=== PATIENT | male | born 1975 | race Caucasian/White ===

== ENCOUNTER 2019-12-15 05:44 | Emergency (ER) | payer SELFPAY ==
[~2019-12-15] VITALS: Ht 172.7 cm; Wt 77.2 kg
[2019-12-15 05:57] VITALS: BP 139/82
[2019-12-15] MEDS ORDERED: PENI500T PO (06:30)
[2019-12-15] MEDS ORDERED: TRAM-48 PO (06:30)
--- NOTE | 2019-12-15 06:30 | PHYS DOC ---
Past Medical History Past Medical History: No Pertinent History Past Surgical History: Other Additional Past Surgical Histo: RETINAL BLASTOMA REPAIR Smoking Status: Current Every Day Smoker Alcohol Use: None Adult General Chief Complaint Chief Complaint: DENTAL PROBLEM HPI HPI Patient is a 44 year old male without history of medical problem who presents with complaint of back pain. Patient complaining of intermittent episodes of left lower jaw and wisdom tooth pain for the last 2 years without seeking medical attention. Patient states for the last 4 days he has had increasing of pain in lower jaw with radiation to left ear without fever and chills, dysphagia, nausea and vomiting. Patient rated his pain 10 over 10 and states he did not feel better with [id number] pain medication and Orajel. Review of Systems Review of Systems Constitutional: Denies fever or chills [] Eyes: Denies change in visual acuity, redness, or eye pain [] HENT: Denies nasal congestion or sore throat, reports dental pain Respiratory: Denies cough or shortness of breath [] Cardiovascular: No additional information not addressed in HPI [] GI: Denies abdominal pain, nausea, vomiting, bloody stools or diarrhea [] : Denies dysuria or hematuria [] Musculoskeletal: Denies back pain or joint pain [] Integument: Denies rash or skin lesions [] Neurologic: Denies headache, focal weakness or sensory changes [] Endocrine: Denies polyuria or polydipsia [] All other systems were reviewed and found to be within normal limits, except as documented in this note. Current Medications Current Medications Current Medications Medications (Trade) Dose Ordered Sig/Santino Start Time Stop Time Status Last Admin Dose Admin Acetaminophen/ Hydrocodone Bitart (Lortab 5/325) 1 tab 1X ONCE 12/15/19 07:00 12/15/19 07:01 Lidocaine HCl (Lidocaine 1% 20ml Vial) 20 ml 1X ONCE 12/15/19 07:00 12/15/19 07:01 12/15/19 06:35 20 ML Allergies Allergies Allergies Coded Allergies Type Severity Reaction Last Updated Verified No Known Drug Allergies 12/15/19 No Physical Exam Physical Exam Constitutional: Well developed, well nourished, mild distress, non-toxic appearance. [] HENT: Normocephalic, atraumatic, bilateral external ears normal, oropharynx moist, tooth #17 with a large cavity and gum edema and tenderness., no oral exudates, nose normal. [] Eyes: Right artificial eye globe, conjunctiva normal, no discharge. [] Neck: Normal range of motion, no tenderness, supple, no stridor. [] Cardiovascular:Heart rate regular rhythm, no murmur [] Lungs & Thorax: Bilateral breath sounds clear to auscultation [] Neurologic: Alert and oriented X 3, normal motor function, normal sensory function, no focal deficits noted. [] Psychologic: Affect normal, judgement normal, mood normal. [] Current Patient Data Vital Signs Vital Signs Date Time Temp Pulse Resp B/P (MAP) Pulse Ox O2 Delivery O2 Flow Rate FiO2 12/15/19 05:57 97.7 76 20 139/82 (101) 99 Room Air 97.7 EKG EKG [] Radiology/Procedures Radiology/Procedures [] Course & Med Decision Making Course & Med Decision Making Evaluation of patient in ER showed 44-year-old male patient with abscess of #17. Patient agreed to have dental block and felt better after injection of lidocaine. Patient was advised to quit smoking and follow up with her dentist. Prescription for penicillin and Ultram was given. Dragon Disclaimer Dragon Disclaimer This electronic medical record was generated, in whole or in part, using a voice recognition dictation system. Departure Departure Impression: Primary Impression: Dental abscess Disposition: 01 HOME, SELF-CARE (at [phone]) Condition: STABLE Referrals: NO PCP (PCP) Patient Instructions: Dental Abscess, Smoking Cessation, Tips For Success, Toothache-Brief Additional Instructions: Drink plenty of liquids Follow-up with your dentist in 3-5 days Return to ER if not getting better Thank you for visiting [facility]. We appreciate you trusting us with your care. If any additional problems come up don't hesitate to return to visit us. Please follow up with your primary care provider so they can plan additional care if needed and know about the problem that you had. If symptoms worsen come back to the Emergency Department. Any concerning symptoms that start such as chest pain, shortness of air, weakness or numbness on one side of the body, running high fevers or any other concerning symptoms return to the ER. Scripts Tramadol Hcl (ULTRAM) 50 Mg Tablet 50 MG PO Q6HRS PRN for PAIN, #14 TAB 0 Refills Prov: CRYSTAL DURHAM MD 12/15/19 Penicillin V Potassium (PENICILLIN V POTASSIUM) 500 Mg Tablet 2 TAB PO Q12HR, #40 TAB Prov: CRYSTAL DURHAM MD 12/15/19 CRYSTAL DURHAM MD Dec 15, 2019 06:30
[2019-12-15] MEDS ORDERED: HYDROcodone/APAP 5/325MG 1 TAB TABLET PO ONE (07:00)
[2019-12-15] MEDS ORDERED: LIDOCAINE 1% Multi-Dose 20 ML VIAL. INJ ONE (07:00)
== END 2019-12-15 06:51 | disposition home or self-care (01) ==
LOC: ER 05:44
DX: K04.7 Periapical abscess without sinus (principal); R68.84 Jaw pain; K08.89 Other specified disorders of teeth and supporting structures; R60.0 Localized edema; F17.200 Nicotine dependence, unspecified, uncomplicated; Z98.890 Other specified postprocedural states
CPT/HCPCS: 64400; 99284; J3490